=== PATIENT | male | born 1940 | race Caucasian/White ===

== ENCOUNTER → 2016-12-01 | Outpatient (CLI) | payer MEDICARE, BC | END | disposition home or self-care (01) | LOC: LABPAT 10:45 | PROVIDERS: ATTEND Orthopaedic Surgery | DX: Z01.812 Encounter for preprocedural laboratory examination (principal) | CPT/HCPCS: 87070 ==

== ENCOUNTER 2017-05-09 08:37 | Day surgery (SDC) | payer MEDICARE, BC ==
[2017-05-03 11:38] VITALS: BMI 23.6
--- NOTE | 2017-05-08 09:48 | HP ---
HISTORY AND PHYSICAL HISTORY: Yvon Bradford is a 76-year-old patient seen with a left knee adhesions after previously under having undergone left total knee arthroplasty. We discussed treatment options. He elected to proceed with med manipulation under anesthesia, left knee with steroid injection. Consent regarding the procedure was obtained. PAST MEDICAL HISTORY: Hypertension, noninsulin dependent diabetes, hyperlipidemia, gastroesophageal reflux disease. PAST SURGICAL HISTORY: Cholecystectomy, bilateral total knee arthroplasty. MEDICATIONS: Atenolol/hydrochlorothiazide, gemfibrozil, glipizide, lisinopril, omeprazole, pravastatin. ALLERGIES: None reported. SOCIAL HISTORY: Patient denies tobacco. PHYSICAL EVALUATION: Left knee, he has a well-healed anterior incision. His range of motion is -12 to 120 degrees. He has some weakness with quadriceps strength. Ligaments are stable. Hip rotation without pain. Distal neurovascular exam is intact. RADIOGRAPHS: Radiographs of the left knee reveal stable-appearing total knee arthroplasty. IMPRESSION: 1. Left knee adhesions status post total knee arthroplasty. 2. Hypertension. 3. Hyperlipidemia. 4. Zrx-[id number]-gbepeljlf diabetes. PLAN: Manipulation under anesthesia, left knee with steroid injection. MMODL / IJN: [id number] /
[~2017-05-09 08:37] MED LIST: MIDAZOLAM 2 MG/2 ML VIAL IV PRN; ceFAZolin 1,000 MG in DEXTROSE/WATER 1 50ML.BAG IVPB ONE; fentaNYL (PF) 50 MCG/ML 2 ML AMP IV PRN
[2017-05-09] MEDS: LACTATED RINGERS 1,000 ML IV SCH ×2 (09:15→09:29)
[2017-05-09] MEDS ORDERED: LIDOCAINE 1% 20 ML VIAL (10MG/ML) FOR IV START INTRADERMA ONE (09:15)
[2017-05-09] MEDS ORDERED: KETOROLAC 30 MG/ML 1 ML VIAL IVP ONE (09:40)
[2017-05-09] MEDS ORDERED: MIDAZOLAM 2 MG/2 ML VIAL ONE (09:46)
[2017-05-09] MEDS ORDERED: LIDOCAINE 1% INJ 10MG/ML (20 ML MDV) ONE (09:46)
[2017-05-09] MEDS ORDERED: fentaNYL (PF) 50 MCG/ML 2 ML AMP ONE (09:46)
[2017-05-09] MEDS ORDERED: PROPOFOL 10 MG/ML 20 ML VIAL IV ONE (09:46)
[2017-05-09] MEDS ORDERED: BUPIVACAINE (PF) 0.25% 30 ML VIAL INTRAARTIC ONE (09:53)
[2017-05-09] MEDS ORDERED: methylPREDNISolone ACETATE 80 MG/ML 1 ML VIAL INJ ONE (09:53)
--- NOTE | 2017-05-09 09:57 | P.OP ---
Date of Procedure: 05/09/17 Preoperative Diagnosis: Left knee adhesions Postoperative Diagnosis: Same Procedure(s) Performed: Manipulation under anesthesia left knee with steroid injection Implants: None Anesthesia: MAC, local Surgeon: Vernon Mike Estimated Blood Loss (ml): 0 Pathology: none sent Condition: stable Disposition: PACU Indications for Procedure: 76-year-old patient seen with persistent left knee adhesions after previously having undergone total knee arthroplasty. After having treatment options discussed, he elected to proceed with manipulation under anesthesia left knee with steroid injection. Operative Findings: see description of procedure Description of Procedure: The patient was taken to monitored anesthesia area. Patient received preoperative IV antibiotics. The patient underwent IV sedation by the department of anesthesia. Once sufficient anesthesia was noted I performed a manipulation of the left knee achieving -1/2 of extension and 135 of flexion with audible tearing of the adhesions. The superior lateral aspect of the knee now was prepped and draped in the normal sterile orthopedic fashion. I injected 1 mL Depo-Medrol and 3 mL quarter percent plain Marcaine intra- articular. A sterile Band-Aid was applied. The patient tolerated the procedure well..
[2017-05-09 10:12] LABS: Glucose,Whole Blood 173 mg/dL (75-99)
[2017-05-09 10:17] VITALS: RESP 16
[2017-05-09 11:25] VITALS: BP 135/74; PULSE 63
== END 2017-05-09 11:44 | disposition home or self-care (01) ==
LOC: OR 08:37
PROVIDERS: ATTEND Orthopaedic Surgery
DX: E11.9 Type 2 diabetes mellitus without complications (principal); E78.5 Hyperlipidemia, unspecified; K21.9 Gastro-esophageal reflux disease without esophagitis; Z79.899 Other long term (current) drug therapy; Z79.84 Long term (current) use of oral hypoglycemic drugs
CPT/HCPCS: 27570; J2250; J1040; J2001; J3010; J1885; J0690; J2704